=== PATIENT | female | born 1990 | race Caucasian/White ===

== ENCOUNTER 2019-03-23 19:00 | Inpatient (IN) | payer OTHER ==
--- NOTE | 2019-03-23 21:10 | PDOC.LDHP ---
Labor and Delivery H&P Chief complaint: scheduled induction HPI: 28 yo @ 41w0d by 11 week CRL who presents for IOL. Pt has controlled hypothyroidsm, otherwise antepartumc course benign. Current gestational age (weeks): 41 Due date: 03/16/19 Dating criteria: first trimester ultrasound Grav: 2 Para: 0 OB History Details: 1 SAB Current complications: none Abnormal US findings: No Past Medical History: Hypothyroidism Current medications: pre-lawrence vitamins Previous surgical history: none Allergies/Adverse Reactions: Allergies Allergy/AdvReac Type Severity Reaction Status Date / Time No Known Allergies Allergy Verified 03/23/19 21:43 Social history: none - Physical Exam Vital signs reviewed and normal: yes General: NAD Heart: RRR Lungs: nonlabored breathing Abdomen: gravid Extremeties: no edema FHT: category 1 (130s, mod clarence, +accels, no decels) [place] contractions every: q2-4 min - Vaginal Exam cm dilated: 4 (meconium noted ) Effacement: 75% Station: -2 - OB Labs Blood type: O RH: positive Antibody Screen: negative HIV: negative RPR: negative HEPSAg: negative 1 hour GCT: positive 3 hour GTT: wnl GBS: negative Urine drug screen: negative Rubella: immune Additional Labs: SS wnl TSH wnl - Assessment 41w0d IUP IOL Hypothyroidism - Plan Plan: admit to L&D, cervical ripening, informed consent obtained, anesthesia consult for pain management -: s/p cytotec and SROM, now on pitocin. Place IUPC at next exam if unchanged.
[2019-03-23] MEDS ORDERED: NS / Oxytocin 40 units/1000ml 1,000 ML IV PRN (21:28)
[2019-03-23] MEDS ORDERED: Acetaminophen 500 MG TAB PO PRN (21:28)
[2019-03-23] MEDS ORDERED: Ondansetron PF 4 MG/2 ML Vial IVP PRN (21:28)
[2019-03-23] MEDS ORDERED: hydrALAZINE 20 MG/ML VIAL SLOW IVP PRN (21:28)
[2019-03-23] MEDS ORDERED: Ibuprofen 800 MG TAB PO PRN (21:28)
[2019-03-23] MEDS ORDERED: Carboprost 250 MCG/ML AMP IM PRN (21:28)
[2019-03-23] MEDS ORDERED: HYDROcodone/Acetaminophen 5/325 mg Tablet PO PRN (21:28)
[2019-03-23] MEDS ORDERED: Diphenoxylate HCl/Atropine Tablet PO PRN (21:28)
[2019-03-23] MEDS ORDERED: Misoprostol 200 MCG TAB PR PRN (21:28)
[2019-03-23] MEDS ORDERED: Butorphanol Tartrate 1 MG/ML VIAL SLOW IVP PRN (21:28)
[2019-03-23] MEDS ORDERED: Promethazine HCl 25 MG/ML VIAL IM PRN (21:28)
[2019-03-23] MEDS ORDERED: Methylergonovine 0.2 MG/ML VIAL IM PRN (21:28)
[2019-03-23] MEDS ORDERED: Lidocaine 1% (PF) 30 ML VIAL SC PRN (21:28)
[2019-03-23 21:42] VITALS: BMI 37.5
[2019-03-23 22:16] LABS: Hemoglobin 10.6 g/dL (12.0-16.0); Mean Corpuscular Hemoglobin 30.3 pg (27.0-31.0); Mean Corpuscular Volume 91.9 fL (78.0-98.0); Mean Platelet Volume 10.3 fL (7.4-10.4); Platelet Count 143 thou/uL (130-400); RBC Distribution Width 17.1 % (11.5-14.5); Red Blood Cell (RBC) Count 3.51 mill/uL (4.20-5.40); White Blood Cell (WBC) Count 9.3 thou/uL (4.8-10.8)
[2019-03-23] MEDS: Lactated Ringer's 1,000 ML IV SCH (22:18)
[2019-03-23] MEDS: Misoprostol 100 MCG TAB VAG SCH (22:18)
[2019-03-23 22:55] LABS: HBSAg Index 0.36 S/CO (0-0.99); HIV (1/2) Antibody/Antigen Non-Reactive (NonReactive); HIV 1/2 INDEX 0.12 S/CO (<1.00); Hep B Surf Ag Non-Reactive S/CO (NonReactive); Syphilis Antibody Nonreactive (Nonreactive); Syphilis Antibody Index 0.08 S/CO (<1.00 Non-Reactive)
[2019-03-24] MEDS ORDERED: Fentanyl 4 mcg/Bup 0.1% Cadd 100 ML ONE ×3 (01:02→14:29)
[2019-03-24] MEDS ORDERED: Lidocaine 1.5%/Epinephrine 1:200,000 5 ML AMPUL IJ ONE (01:07)
[2019-03-24] MEDS: Misoprostol 100 MCG TAB VAG SCH ×3 (01:41→06:24)
[2019-03-24] MEDS: Lactated Ringer's 1,000 ML IV SCH ×2 (01:42→18:13)
[2019-03-24] MEDS ORDERED: diphenhydrAMINE 50 MG/ML VIAL IVP PRN ×2 (01:51→19:27)
[2019-03-24] MEDS ORDERED: Promethazine HCl 25 MG/ML VIAL IM PRN ×2 (01:51→19:27)
[2019-03-24] MEDS ORDERED: ePHEDrine/0.9% NaCl/PF SYRINGE 50 mg/10 ml SLOW IVP PRN (01:51)
[2019-03-24] MEDS ORDERED: Naloxone HCl 0.4 mg/ml Vial IVP PRN ×4 (01:51→19:27)
[2019-03-24] MEDS ORDERED: Ondansetron PF 4 MG/2 ML Vial IVP PRN ×2 (01:51→19:27)
[2019-03-24] MEDS ORDERED: Lactated Ringer's 500 ML IV PRN (01:51)
[2019-03-24] MEDS ORDERED: Communication Order-Pharmacy FS SCH ×2 (02:00→19:30)
[2019-03-24] MEDS ORDERED: Fentanyl 4 mcg/Bupivacaine 0.1% Cassette 100 ML EPIDURAL SCH (02:00)
[2019-03-24] MEDS ORDERED: NS w/ Oxytocin 10 units 500 ML IV SCH (06:00)
[2019-03-24] MEDS: Levothyroxine Sodium 88 MCG TAB PO SCH (06:24)
--- NOTE | 2019-03-24 13:02 | PDOC.LDPN ---
Labor & Delivery Progress Note - Subjective Subjective: comfortable - Objective Vital signs reviewed and normal: yes General: NAD Uterine fundus: non tender Dilation: 5 Effacement: 75% Station: -2 FHT: category 1 (140s, mod clarence, +accels, no decels ) [place] contractions every: q 2 min IUPC placed: yes - Assessment (1) 41 weeks gestation of Code(s): Z3A.41 - 41 WEEKS GESTATION OF Current Visit: Yes Status : Acute (2) Encounter for induction of labor Code(s): Z34.90 - ENCNTR FOR SUPRVSN OF NORMAL , UNSP, UNSP TRIMESTER Current Visit: Yes Status: Acute -: IUPC placed Continue pitocin protocol, currently ctx appear adequate MVUs
[2019-03-24] MEDS ORDERED: Ondansetron PF 4 MG/2 ML Vial ONE ×3 (13:41→20:15)
[2019-03-24] MEDS ORDERED: Lidocaine 2% PF 5 ML VIAL ONE (13:41)
[2019-03-24] MEDS ORDERED: Dexamethasone 20 MG/5 ML VIAL ONE (13:41)
--- NOTE | 2019-03-24 17:31 | PDOC.LDPN ---
Labor & Delivery Progress Note - Subjective Subjective: comfortable - Objective Vital signs reviewed and normal: yes General: NAD Uterine fundus: non tender Dilation: 6 Effacement: 90% Station: -1 FHT: category 2 (130s, mod clarence, +accels, rare small variable decel with quick recovery ) [place] contractions every: q2min, adequate MVUS Other exam findings: some cervical swelling noted on exam - Assessment (1) 41 weeks gestation of Code(s): Z3A.41 - 41 WEEKS GESTATION OF Current Visit: Yes Status : Acute (2) Encounter for induction of labor Code(s): Z34.90 - ENCNTR FOR SUPRVSN OF NORMAL , UNSP, UNSP TRIMESTER Current Visit: Yes Status: Acute -: Reviewed protracted labor course with pt and husbands. Suspect position LOT. Continue position changes. Recommended check in 2 hours and if unchanged recommended PLTCS. Pt amenable to plan.
[2019-03-24] MEDS ORDERED: Bicitra 30 ML UDCUP ONE (19:01)
[2019-03-24] MEDS ORDERED: Lidocaine 2% 10 ML INJ ONE ×2 (19:07→19:45)
[2019-03-24] MEDS ORDERED: Naloxone HCl 0.4 mg/ml Vial IV PRN (19:27)
[2019-03-24] MEDS ORDERED: Promethazine HCl 25 MG SUPP PR PRN (19:27)
[2019-03-24] MEDS ORDERED: Ondansetron HCl/PF 4 MG/2 ML Vial IVP PRN (19:27)
[2019-03-24] MEDS ORDERED: HYDROmorphone 2 MG/ML VIAL SLOW IVP PRN (19:27)
[2019-03-24] MEDS ORDERED: Meperidine HCl/PF 25 MG/ML VIAL SLOW IVP PRN (19:27)
[2019-03-24] MEDS ORDERED: L&D-Morphine 4 MG/ML VIAL SLOW IVP PRN (19:27)
[2019-03-24] MEDS ORDERED: Ketorolac Tromethamine 30 MG/ML VIAL IVP PRN (19:27)
--- NOTE | 2019-03-24 19:27 | PDOC.LDPN ---
Labor & Delivery Progress Note - Subjective Subjective: comfortable - Objective Vital signs reviewed and normal: yes General: NAD Uterine fundus: non tender SVE: 6 Effacement: 90% Station: -1 FHT: category 1 (140s, mod clarence, +accels, no decels ) [place] contractions every: q4min - Assessment (1) 41 weeks gestation of Code(s): Z3A.41 - 41 WEEKS GESTATION OF Current Visit: Yes Status : Acute (2) Encounter for induction of labor Code(s): Z34.90 - ENCNTR FOR SUPRVSN OF NORMAL , UNSP, UNSP TRIMESTER Current Visit: Yes Status: Acute -: Reviewed no change in several hours - approx 5-6 cm, despite adequate MVUs. Recommended PLCTS and pt amenable.
[2019-03-24] MEDS ORDERED: Bicitra 30 ML UDCUP PO SCH (19:30)
[2019-03-24] MEDS ORDERED: Azithromycin 500 MG in Sodium Chloride 0.9% 250 ML 250 ML IVPB SCH (19:30)
[2019-03-24] MEDS ORDERED: CEFAZOLIN 2 GM in Premix Bag 1 BAG IVPB SCH (19:30)
[2019-03-24] MEDS ORDERED: Ketorolac Tromethamine 30 MG/ML VIAL IVP SCH (19:30)
[2019-03-24] MEDS ORDERED: MORPHINE 5 MG/10 ML PF VIAL ONE (19:42)
[2019-03-24] MEDS ORDERED: Oxytocin 10 UNITS/ML VIAL ONE ×4 (19:43→20:33)
[2019-03-24] MEDS ORDERED: Dexamethasone 4 mg/ml Vial ONE (19:43)
[2019-03-24] MEDS ORDERED: Fentanyl 100 MCG/2 ML VIAL ONE ×3 (19:58→20:02)
[2019-03-24] MEDS ORDERED: Promethazine HCl 25 MG/ML VIAL ONE (20:23)
--- NOTE | 2019-03-24 20:28 | PDOC.OPDEL ---
OB Operative/Delivery Note Delivery Dr/Surgeon: Giselle De La O DO Pre-Delivery Diagnosis: arrest of dilation Procedure/Post Delivery Dx: primary low transverse CS Weeks gestation: 39 Anesthesia: epidural - Findings A Sex: male - 1 min: 8 - 5 min: 9 - Additional Findings/Plan Placenta delivered: spontaneous findings: low transverse hysterotomy without extension, normal uterus, normal tubes, normal ovaries Estimated blood loss: QBL 435 cc Compilations/Other Findings: in LOT position Suspect LGA, weight pending. Normal appearing placenta Meconium stained amniotic fluid Nuchal x2 Post delivery plan: routine recovery
[2019-03-24] MEDS ORDERED: Bisacodyl 10 MG SUPP PR PRN (22:45)
[2019-03-24] MEDS ORDERED: Zolpidem Tartrate 5 MG TAB PO PRN (22:45)
[2019-03-24] MEDS ORDERED: Lanolin Ointment 7 GM TUBE TOP PRN (22:45)
[2019-03-24] MEDS ORDERED: hydrALAZINE 20 MG/ML VIAL SLOW IVP PRN (22:45)
[2019-03-25 05:57] LABS: Band 6 % (5-11); Hemoglobin 10.2 g/dL (12.0-16.0); Hypochromia SLIGHT = 6-15 cells (100X) (0-5/hpf); Lymphocytes 2 % (21-51); MDiff Complete? YES; Mean Corpuscular HGB CONC 32.9 g/dL (32.0-36.0); Mean Corpuscular Hemoglobin 30.4 pg (27.0-31.0); Mean Corpuscular Volume 92.4 fL (78.0-98.0); Mean Platelet Volume 10.5 fL (7.4-10.4); Monocytes 2 % (0-10); Neutrophil 90 % (42-75); Platelet Count 138 thou/uL (130-400); Platelet Morphology Comment Appears Adequate; RBC Distribution Width 17.3 % (11.5-14.5); Red Blood Cell (RBC) Count 3.37 mill/uL (4.20-5.40); White Blood Cell (WBC) Count 20.1 thou/uL (4.8-10.8)
[2019-03-25] MEDS: Lactated Ringer's 1,000 ML IV SCH ×2 (06:28→16:09)
--- NOTE | 2019-03-25 08:34 | PDOC.PP ---
Post Progress Note Post Day #: 1 Subjective: Pain controlled. Minimal lochia. No concerns. Breast feeding. Faye in place. PO intake tolerated: yes Flatus: no Ambulation: no Vital Signs (12 hours) Temp Pulse Resp BP Pulse Ox 03/25/19 08:00 98.5 F 78 13 133/83 98 03/24/19 23:30 98.6 F 88 17 126/78 03/24/19 22:45 99.0 F 81 17 107/60 98 03/24/19 22:30 98 Weight Weight 205 lb - Physical Examination General: NAD Cardiovascular: RRR Respiratory: non-labored breathing Abdominal: no distention, appropriately TTP Fundus firm & at: below umbilicus Extremities: negative homans (B) Deviation from normal: dressing c/d/i Neurological: no gross focal deficits Psychiatric: A&Ox3, normal affect Result Diagrams: 03/25/19 05:11 Additional Labs: Post Labs Blood Type O POSITIVE 03/23/19 22:30 Hep Bs Antigen Non-Reactive S/CO (NonReactive) 03/23/19 22:03 (1) 41 weeks gestation of Code(s): Z3A.41 - 41 WEEKS GESTATION OF Status: Resolved (2) Encounter for induction of labor Code(s): Z34.90 - ENCNTR FOR SUPRVSN OF NORMAL , UNSP, UNSP TRIMESTER Status: Resolved (3) delivery delivered Code(s): O82 - ENCOUNTER FOR DELIVERY WITHOUT INDICATION Status: Acute - Assessment/Plan PPD1 VSSAF Continue PP care. Plan for d/c 1-2 days
[2019-03-25] MEDS: Levothyroxine Sodium 88 MCG TAB PO SCH (08:56)
[2019-03-25] MEDS: Docusate Calcium (SURFAK) 240 MG CAP PO SCH ×2 (10:17→20:55)
[2019-03-25] MEDS: Prenatal Vitamin 1 TAB PO SCH (10:17)
[2019-03-25] MEDS: Simethicone Chewable 80 MG TAB PO PRN ×2 (10:17→20:55)
[2019-03-25] MEDS: Acetaminophen 325 MG TAB PO PRN (10:17)
[2019-03-25] MEDS: HYDROcodone/Acetaminophen 5/325 mg Tablet PO PRN ×3 (11:54→20:55)
--- NOTE | 2019-03-25 12:49 | OP ---
DATE OF PROCEDURE: 03/24/2019 PREOPERATIVE DIAGNOSES: 1. 41-week and 1-day intrauterine . 2. Induction of labor. 3. Hypothyroidism. 4. Arrest of dilation. 5. Concern for possible malposition in occiput transverse position and possible macrosomia. POSTOPERATIVE DIAGNOSES: 1. 41-week and 1-day intrauterine . 2. Induction of labor. 3. Hypothyroidism. 4. position, occiput transverse position. 5. macrosomia. PROCEDURE PERFORMED: Primary low transverse delivery via Pfannenstiel skin incision. WASHER ENGINEER: Ventura Gusman MD COMPLICATIONS: None. QBL: 435 mL. IV FLUIDS: 1000 mL. URINARY OUTPUT: 300 mL of blood-tinged urine. FINDINGS: Normal-appearing uterus, fallopian tubes, and ovaries bilaterally. Meconium-stained amniotic fluid. Normal-appearing placenta. Viable male in cephalic presentation, left occiput transverse position, weighing 9 pounds with Apgars of 8 and 9, and a double nuchal cord. INDICATIONS FOR PROCEDURE: Ms. Olivia Martin is a 28-year-old, G2, P0, at 41 weeks and 0 day, who underwent induction of labor. She was induced with cervical ripening followed by Pitocin. She progressed into active labor; however, had an arrest of dilation at 6 cm despite adequate contractions determined by adequate MVUs and IUPC. The patient was counseled, and it was thought that arrest of dilation was likely due to a position occiput transverse position and also concern for possible macrosomia. The patient was counseled and primary delivery was recommended. PROCEDURE IN DETAIL: The patient was brought to the operating room. She had an epidural, which was additionally dosed. She was placed in supine position with a leftward tilt. She also had a Faye catheter already in place. She was given azithromycin and Ancef for surgical prophylaxis. She was prepped and draped in a sterile fashion. An official time-out was performed. A skin incision was made using the scalpel and this was carried down to the underlying fascial layer. The fascia was incised in the midline and extended bilaterally using Ballesteros scissors. The superior aspect of the fascial incision was grasped using Sophie clamps, tented upward, and dissected free from the underlying rectus abdominis muscles and the same was performed to the anterior aspect of the fascial incision. The peritoneum was then entered bluntly. The peritoneal incision was extended using blunt dissection. The Herman O retractor was then placed into the abdomen. A bladder flap was created using Metzenbaum scissors. A low-transverse hysterotomy was made using the scalpel. Hysterotomy was extended using blunt dissection. The amniotic membranes were ruptured noting a meconium-stained amniotic fluid. Infant was delivered in cephalic presentation without difficulty. There was a double nuchal cord noted, which was reduced. The 's cord was clamped and cut. The was handed to waiting Neonatology team. Cord blood was obtained. The placenta was delivered spontaneously intact. The uterus was cleared of all clot and debris. Hysterotomy was closed in a running locking fashion using 1 Monocryl. The hysterotomy was hemostatic after closure. The pelvis was irrigated and cleared of all clot and debris. The bilateral fallopian tubes and ovaries were evaluated and normal in appearance. The Herman O retractor was removed. The lap count was performed and correct. The rectus abdominis muscles were evaluated and hemostatic. The fascia was closed in a running fashion using 0 PDS. The subcutaneous layer was copiously irrigated and hemostatic with the use of the Bovie. The subcutaneous layer was closed using 3-0 Vicryl and the skin was closed using 4-0 Monocryl and Dermabond. The patient tolerated the procedure well. There were no complications. All counts were correct x3. Mother and baby were transferred to routine recovery. Job ID: [id number]
[2019-03-25] MEDS: Ibuprofen 800 MG TAB PO SCH ×2 (13:51→23:17)
[2019-03-25] MEDS: Ferrous Sulfate 325 MG TAB PO SCH ×2 (16:08→16:09)
[2019-03-26] MEDS: Ibuprofen 800 MG TAB PO SCH ×3 (06:44→21:19)
[2019-03-26] MEDS: Levothyroxine Sodium 88 MCG TAB PO SCH (06:47)
--- NOTE | 2019-03-26 09:07 | PRG ---
DATE OF SERVICE: 03/26/2019 SUBJECTIVE: The patient is postop day #2 status post a primary for arrest of labor. She is tolerating p.o., voiding on her own, having decreased lochia, and decent pain control. OBJECTIVE: VITAL SIGNS: Today, blood pressure is 122/65, temperature 98.2, pulse is 78, respiratory rate 17, saturating 100% on room air. GENERAL: She appears to be in no acute distress. ABDOMEN: Her fundus is firm. Incision is clean, dry, and intact. EXTREMITIES: Nontender, nonedematous. ASSESSMENT AND PLAN: The patient is postop day #2 status post a primary . We will anticipate discharge later today or tomorrow at patient's preference; otherwise, we will continue routine postoperative care. Job ID: [id number]
[2019-03-26] MEDS: Prenatal Vitamin 1 TAB PO SCH (09:29)
[2019-03-26] MEDS: Simethicone Chewable 80 MG TAB PO PRN ×2 (09:29→17:26)
[2019-03-26] MEDS: Docusate Calcium (SURFAK) 240 MG CAP PO SCH ×2 (09:29→21:19)
[2019-03-26] MEDS: Acetaminophen 325 MG TAB PO PRN ×2 (13:12→20:29)
[2019-03-26] MEDS: Ferrous Sulfate 325 MG TAB PO SCH ×2 (13:43→17:26)
[2019-03-26] MEDS: Lactated Ringer's 1,000 ML IV SCH (23:26)
[2019-03-26] MEDS: Misoprostol 100 MCG TAB VAG SCH ×4 (23:27→23:31)
[2019-03-27] MEDS: Misoprostol 100 MCG TAB VAG SCH ×2 (02:15→04:37)
[2019-03-27] MEDS: Simethicone Chewable 80 MG TAB PO PRN (04:26)
[2019-03-27] MEDS: Acetaminophen 325 MG TAB PO PRN (04:27)
[2019-03-27] MEDS: Lactated Ringer's 1,000 ML IV SCH (06:12)
[2019-03-27] MEDS: Ibuprofen 800 MG TAB PO SCH (06:13)
[2019-03-27] MEDS: Levothyroxine Sodium 88 MCG TAB PO SCH (06:21)
--- NOTE | 2019-03-27 07:40 | PDOC.PP ---
Post Progress Note Post Day #: 3 Subjective: Pt reports doing really well. Reports lochia as light. Tolerating PO. Ambulating with no complications. Denies any fever, chills, chest pain or SOB. Pt has some mild swelling in LE. No other acute concerns at this time PO intake tolerated: yes Flatus: yes Ambulation: yes Vital Signs (12 hours) Temp Pulse Resp BP Pulse Ox 03/27/19 04:22 97.7 F 76 18 121/79 03/26/19 20:12 98.5 F 79 18 140/82 98 Weight Weight 92.986 kg - Physical Examination General: NAD Cardiovascular: no m/r/g, RRR Respiratory: clear to auscultation bilaterally, non-labored breathing Abdominal: + bowel sounds, lochia (Reports as light), no distention, appropriately TTP Fundus firm & at: below umbilicus Extremities: negative homans (B) Skin: CS incision dry & intact (No sign of drainage), no rash Neurological: no gross focal deficits Psychiatric: A&Ox3, normal affect Result Diagrams: 03/25/19 05:11 Additional Labs: Post Labs Blood Type O POSITIVE 03/23/19 22:30 Hep Bs Antigen Non-Reactive S/CO (NonReactive) 03/23/19 22:03 (1) delivery delivered Code(s): O82 - ENCOUNTER FOR DELIVERY WITHOUT INDICATION Status: Acute (2) 41 weeks gestation of Code(s): Z3A.41 - 41 WEEKS GESTATION OF Status: Resolved - Assessment/Plan PPD3 Vital signs stable Continue PP care. Plan for d/c today.
[2019-03-27 10:39] VITALS: BP 112/82; TEMP 98.1
== END 2019-03-27 10:05 | disposition home or self-care (01) | DRG 788 ==
LOC: L&D 21:00 → 3SW 03-24 22:43
PROVIDERS: ADMIT Obstetrics & Gynecology; ATTEND Obstetrics & Gynecology
PROC: 10D00Z1 Extraction of Products of Conception, Low, Open Approach (ICD-10-PCS; principal; 2019-03-25)
PROC: 3E0P7VZ Introduction of Hormone into Female Reproductive, Via Natural or Artificial Opening (ICD-10-PCS; 2019-03-25)
PROC: 3E033VJ Introduction of Other Hormone into Peripheral Vein, Percutaneous Approach (ICD-10-PCS; 2019-03-25)
DX: O77.0 Labor and delivery complicated by meconium in amniotic fluid (principal); O48.0 Post-term pregnancy; Z3A.41 41 weeks gestation of pregnancy; O99.284 Endocrine, nutritional and metabolic diseases complicating childbirth; E03.9 Hypothyroidism, unspecified; O36.63X0 Maternal care for excessive fetal growth, third trimester, not applicable or unspecified; O69.81X0 Labor and delivery complicated by cord around neck, without compression, not applicable or unspecified; O62.0 Primary inadequate contractions; O64.8XX0 Obstructed labor due to other malposition and malpresentation, not applicable or unspecified; Z37.0 Single live birth
CPT/HCPCS: 36415; 51702; 76815; 85025; 85027; 86780; 86850; 86900; 86901; 87340; 87389; J0131; J0456; J0690; J1100; J1885; J2001; J2274; J2405; J2550; J2590; J3010; J3490; J7050